=== PATIENT | male | born 1950 | race Hispanic/Latino ===

== ENCOUNTER 2021-11-29 18:42 | Inpatient (IN) | payer OTHER ==
--- OUTSIDE RECORDS SUMMARY | 2021-11-29 18:45 | XMS REPORT | Continuity of Care Document ---
:1950 Author Organization [facility] t Address [address] [place] [address] Care Team Providers Name Role Phone Dakota Sams MD Primary Care Physician ANEUDY SAMS Attending Clinician Unavailable Aneudy Sams MD Attending Clinician Bhumika RN, T Attending Clinician Unavailable Lucina LI Attending Clinician Unavailable Only, Db Test Attending Clinician Unavailable Shaylee Colin MD Attending Clinician Shaylee COLIN III Attending Clinician Unavailable Payers Payer Name Policy Type Policy Number Effective Date Expiration Date S ource Problems Condition Condition Condition Status Onset Resolution Last Treating Co mments Source Name Details Category Date Date Treatment Clinician Date BPH BPH Disease Active Univers (benign (benign 4-20 [place] hypert[place] dical y) y) Branch GERD GERD Disease Active Univers (gastroeso (gastroeso 2-29 it y of phageal phageal 00:00: [place] reflux reflux 00 Medical disease) disease) Branch Erectile Erectile Disease Active Unive rs dysfunctio dysfunctio 2-29 it y of n n 00:00: [address] Allergies, Adverse Reactions, Alerts Allergy Allergy Status Severity Reaction(s) Onset Inactive Treating Comm ents Source Name Type Date Date Clinician NO KNOWN Drug Active Univers ALLERGIE Class ity of S [facility] Social History Social Habit Start Date Stop Date Quantity Comments Source Exposure to Not sure University SARS-CoV-2 (event) [facility] Alcohol intake 2019-04-11 2019-04-11 Current University of 00:00:00 00:00:00 non-drinker of [facility] alcohol Branch (finding) Tobacco use and 2016-01-17 2016-01-17 Never used Universit y of exposure 00:00:00 00:00:00 [facility] Cigarettes smoked 2016-01-17 2016-01-17 Univers ity of current (pack per 00:00:00 00:00:00 [facility] ) - Reported Branch Cigarette 2016-01-17 2016-01-17 University of pack-years 00:00:00 00:00:00 [facility] History of tobacco 1981-01-16 Cigarette Smoker University of use 00:00:00 [facility] Sex Ass[birth year] At [birth year] Universit y of 00:00:00 00:00:00 [facility] Smoking Status Start Date Stop Date Source Former smoker 2016-01-17 00:00:00 2016-01-17 00:00:00 Universi ty of [facility] Medications Ordered Filled Start Stop Current Ordering Indication Dosage Frequency Signature Comments Components Source Medication Medication Date Date Medication? Clinician (SIG) Name Name pantoprazol 2020-11 Yes [id number] 40mg Take 1 Univers e 40 mg EC 2-13 tablet by ity of tablet 00:00: mouth [place] 00 daily. Medical Branch pantoprazol 2020-11 Yes [id number] 40mg Take 1 Univers e 40 mg EC 2-13 tablet by ity of tablet 00:00: mouth [place] 00 daily. Medical Branch pantoprazol 2020-11 Yes [id number] 40mg Take 1 Univers e 40 mg EC 2-13 tablet by ity of tablet 00:00: mouth [place] 00 daily. Medical Branch pantoprazol 2020-11 Yes [id number] 40mg Take 1 Univers e 40 mg EC 2-13 tablet by ity of tablet 00:00: mouth [place] 00 daily. Medical Branch pantoprazol 2020-11 Yes [id number] 40mg Take 1 Univers e 40 mg EC 2-13 tablet by ity of tablet 00:00: mouth [place] 00 daily. Medical Branch esomeprazol 2020-11 Yes [id number] 40mg Take 1 Univers e 40 mg 2-06 capsule by ity of capsule 00:00: mouth [place] 00 daily with Medical breakfast. Branch esomeprazol 2020-11 Yes [id number] 40mg Take 1 Univers e 40 mg 2-06 capsule by ity of capsule 00:00: mouth [place] 00 daily with Medical breakfast. Branch esomeprazol 2020-11 Yes [id number] 40mg Take 1 Univers e 40 mg 2-06 capsule by ity of capsule 00:00: mouth [place] 00 daily with Medical breakfast. Branch esomeprazol 2020-11 Yes [id number] 40mg Take 1 Univers e 40 mg 2-06 capsule by ity of capsule 00:00: mouth [place] 00 daily with Medical breakfast. Branch esomeprazol 2020-11 Yes [id number] 40mg Take 1 Univers e 40 mg 2-06 capsule by ity of capsule 00:00: mouth [place] 00 daily with Medical breakfast. Branch sildenafiL 2020-11 Yes [id number] 100mg Take 1 Univers (VIAGRA) 1-30 tablet by ity of 100 mg 00:00: mouth as [place] tablet 00 needed Medical (take one Branch hour prior to sexual activity). clobetasoL 2020-11 Yes [id number] Apply to Univers 0.05 % 1-30 affected ity of ointment 00:00: area[place] 2 [place] (two) Medical times Branch daily. sildenafiL 2020-11 Yes [id number] 100mg Take 1 Univers (VIAGRA) 1-30 tablet by ity of 100 mg 00:00: mouth as [place] tablet 00 needed Medical (take one Branch hour prior to sexual activity). clobetasoL 2020-11 Yes [id number] Apply to Univers 0.05 % 1-30 affected ity of ointment 00:00: area[place] 2 [place] (two) Medical times Branch daily. sildenafiL 2020-11 Yes [id number] 100mg Take 1 Univers (VIAGRA) 1-30 tablet by ity of 100 mg 00:00: mouth as [place] tablet 00 needed Medical (take one Branch hour prior to sexual activity). clobetasoL 2020-11 Yes [id number] Apply to Univers 0.05 % 1-30 affected ity of ointment 00:00: area[place] 2 [place] (two) Medical times Branch daily. sildenafiL 2020-11 Yes [id number] 100mg Take 1 Univers (VIAGRA) 1-30 tablet by ity of 100 mg 00:00: mouth as [place] tablet 00 needed Medical (take one Branch hour prior to sexual activity). clobetasoL 2020-11 Yes [id number] Apply to Univers 0.05 % 1-30 affected ity of ointment 00:00: area[place] 2 [place] (two) Medical times Branch daily. sildenafiL 2020-11 Yes [id number] 100mg Take 1 Univers (VIAGRA) 1-30 tablet by ity of 100 mg 00:00: mouth as [place] tablet 00 needed Medical (take one Branch hour prior to sexual activity). clobetasoL 2020-11 Yes [id number] Apply to Univers 0.05 % 1-30 affected ity of ointment 00:00: area[place] 2 [place] (two) Medical times Branch daily. esomeprazol 2020-11- No [id number] 40mg Take 1 Univers e 40 mg 1-30 12-06 capsule by ity o f capsule 00:00: 00:00 mouth [place] 00 :00 daily with Medical breakfast. Branch Procedures This patient has no known procedures. Encounters Start End Encounter Admission Attending Care Care Encounter Source Date/Time Date/Time Type Type Clinicians Facility Department ID 2021-12-06 2021-12-06 Outpatient R [facility]D [facility] [id number] Univers 10:30:00 10:30:00 DAKOTA [id number] ity of [facility] 2021-11-28 2021-11-[address] [facility] [place] [place] [id number] Univers 00:00:00 00:00:00 [facility] [id number] it y of [facility] [id number] Basim as GOVIND?BLEA [id number] Fl tha [address] MEDICAL OFFICE BUILDING 2021-11-27 2021-11-27 Nurse JOHANNY Bai [id number] Univers 00:00:00 00:00:00 Triage Vee PETERS [id number] it y of [facility] [id number] Basim as [id number] [address] 2021-11-25 2021-11-25 Telephone JOHANNY Verdugo [id number] Univers 00:00:00 00:00:00 Lulú PETERS [id number] it y of [facility] [id number] Basim as [id number] [address] 2021-11-23 2021-11-23 Laboratory Only, Ang Db Test [facility] [[email or web address]] [id number] Univers 12:00:00 12:15:00 Only Dakota Colin [facility] [id number] ity of [place] [id number] Basim as GOVIND?BLEA [id number] Fl tha [address] MEDICAL OFFICE BUILDING 2021-11-23 2021-11-23 Outpatient R [facility] [id number] Univers 12:00:00 12:00:[id number] [facility] 2021-11-23 2021-11-23 Outpatient R [facility] [id number] Univers 12:00:00 12:00:[address] [facility] 2021-10-21 2021-10-21 [facility] [id number] Univers 00:00:00 00:00:00 Dakota [facility] [id number] it y of frederick [place] [id number] Basim as GOVIND?BLEA [phone] Fl dicmiki [facility] [address] MEDICAL OFFICE BUILDING Results This patient has no known results.
--- NOTE | 2021-11-29 19:15 | RAD REPORT ---
EXAM DESCRIPTION: RAD - Chest Single View - 11/29/2021 7:03 pm CLINICAL HISTORY: CHEST PAIN COMPARISON: None TECHNIQUE: AP portable chest image was obtained 11/29/2021 7:03 pm . FINDINGS: Lung volumes are low. Interstitial and alveolar opacities are present worse in each lung b ase. History indicated only chest pain. Lung parenchymal pattern is suspicious for COVID-19 pneumonia and needs correlation with history and testing. Non COVID viral pneumonia or influenza are possibili ties. Trachea is midline. Heart and vasculature are prominent, mostly due to shallow inspiration. No measur able pleural effusion and no pneumothorax. No acute bony abnormality seen. No acute aortic findings s uspected. IMPRESSION: Bilateral interstitial and alveolar opacities are present suspicious for COVID-19 pneumo brittnee. This needs correlation with history and testing. Non COVID-19 viral pneumonia etiologies are possible as well. Prominent heart and vasculature mostly due shallow inspiration. A mild failure or volume overload cou ld be masked.
[2021-11-29 19:16] LABS: Absolute Lymphocytes (CBC) 0.6 K/uL (0.7-4.9); Hematocrit 47.3 % (39.6-49.0); Lymphocytes % 6.9 % (15.3-44.8); MPV 7.8 fL (7.6-11.3); RBC Red Blood Cell Count 4.91 M/uL (4.33-5.43)
[2021-11-29 19:25] LABS: Protime INR 1.19
[2021-11-29] MEDS ORDERED: dexAMETHasone 10 MG/ML VIAL ONE (19:39)
[2021-11-29 20:13] LABS: SARS-COV-2 RT PCR POSITIVE (NEGATIVE)
[2021-11-29] MEDS ORDERED: NA CHLORIDE 0.9% 1,000 ML ONE (20:17)
--- NOTE | 2021-11-29 20:21 | EDPHYS ---
Physician Documentation [facility] Name: Rosalina Marte Age: 71 yrs Sex: Male : 1950 Arrival Date: 11/29/2021 Time: 18:43 Bed 6 Private MD: ED Physician Martell Josue HPI: 11/29 19:00 This 71 yrs old Male presents to ER via EMS with complaints of Breathing cp Difficulty. 19:00 The patient has shortness of breath at rest. Onset: The symptoms/episode began/occurred cp gradually. Duration: The symptoms are continuous, and are steadily getting worse. The patient's shortness of breath is aggravated by exertion. Associated signs and symptoms: Pertinent positives: chest pain, Pertinent negatives: diaphoresis, fever, vomiting. Severity of symptoms: in the emergency department the symptoms are unchanged. 19:00 Patient reports testing positive for COVID-19 11-23-2021. Patient reports he is not cp vaccinated against COVID-19. Historical: - Allergies: 18:48 No Known Allergies; jd3 - Home Meds: 18:48 None [Active]; jd3 - PMHx: 18:48 None; jd3 - PSHx: 18:48 None; jd3 - Immunization history:: Adult Immunizations up to date, Client reports having NOT received the Covid vaccine. Flu vaccine is not up to date. - Social history:: Smoking status: Patient denies any tobacco usage or history of. ROS: 19:05 Constitutional: Negative for fever, poor PO intake. cp 19:05 Eyes: Negative for injury, pain, redness, and discharge. cp 19:05 ENT: Negative for drainage from ear(s), ear pain, difficulty swallowing, difficulty handling secretions. 19:05 Cardiovascular: Positive for chest pain, Negative for edema. 19:05 Respiratory: Positive for cough, shortness of breath, at rest. 19:05 Abdomen/GI: Negative for abdominal pain, vomiting, diarrhea, constipation. 19:05 : Positive for decreased urine output, Negative for urinary symptoms, difficulty urinating. 19:05 Neuro: Negative for altered mental status, syncope. 19:05 All other systems are negative. Exam: 19:08 Constitutional: The patient appears alert, awake, non-diaphoretic, non-toxic, well cp developed, well nourished, in obvious distress, moderately distressed. 19:08 Head/Face: Normocephalic, atraumatic. cp 19:08 Eyes: Periorbital structures: appear normal, Pupils: equal, round, and reactive to light and accomodation, Extraocular movements: intact throughout, Conjunctiva: normal, no exudate, no injection, Sclera: no appreciated abnormality, Lids and lashes: appear normal, bilaterally. 19:08 ENT: External ear(s): are unremarkable, Ear canal(s): are normal, clear, TM's: dullness, bilaterally, Nose: is normal, Mouth: Lips: moist, Oral mucosa: pink and intact, moist, Posterior pharynx: Airway: no evidence of obstruction, patent. 19:08 Neck: ROM/movement: is normal, is supple, without pain, no range of motions limitations, no meningismus, no nuchal rigidity. 19:08 Chest/axilla: Inspection: normal. 19:08 Cardiovascular: Rate: tachycardic, Rhythm: regular, Edema: is not appreciated, JVD: is not appreciated. 19:08 Respiratory: moderate respiratory distress is noted, Respirations: labored breathing, that is moderate, shallow respirations, that is moderate, Breath sounds: bronchial sounds, that are mild, are heard diffusely, decreased breath sounds, that are moderate, throughout, wheezing: is not appreciated. 19:08 Abdomen/GI: Inspection: abdomen appears normal, Bowel sounds: active, all quadrants, Palpation: abdomen is soft and non-tender, in all quadrants. 19:08 Back: pain, is absent, ROM is normal. 19:08 Neuro: Orientation: to person, place \\T\\ time. Mentation: is normal, Motor: moves all fours, strength is normal, Sensation: is normal. 19:10 ECG was reviewed by the Attending Physician. cp Vital Signs: 18:48 BP 118 / 91; Pulse 120; Resp 23 S; Temp 99.0(O); Pulse Ox 93% on Non-rebreather mask; jd3 Weight 69.85 kg (R); Height 5 ft. 4 in. (162.56 cm) (R); Pain 0/10; 19:43 BP 110 / 82; Pulse 114; Resp 38 S; Pulse Ox 95% on 40% BiPAP; as6 21:12 BP 116 / 84; Pulse 114; Resp 33 S; Pulse Ox 94% on 40% BiPAP; as6 18:48 Body Mass Index 26.43 (69.85 kg, 162.56 cm) jd3 MDM: 19:00 Differential diagnosis: CHF exacerbation, Chronic Obstructive Pulmonary Disease cp pneumonia, Pneumothorax pulmonary edema, Pulmonary Embolism Sepsis Unstable Angina respiratory failure. 19:06 Patient medically screened. 20:20 Physician consultation: Parviz CARMONA was contacted at 20:20, regarding admission, to the telemetry unit. patient's condition. 21:35 Data reviewed: vital signs, nurses notes, lab test result(s), EKG, radiologic studies, cp plain films. 21:35 Test interpretation: by ED physician or midlevel provider: ECG, plain radiologic cp studies. 11/29 18:50 Order name: Basic Metabolic Panel 11/29 18:50 Order name: CBC with Diff 11/29 18:50 Order name: LFT's 11/29 18:50 Order name: Magnesium cp 11/29 18:50 Order name: NT PRO-BNP 11/29 18:50 Order name: PT-INR; Complete Time: 19:48 cp 11/29 18:50 Order name: Troponin HS; Complete Time: 21:30 cp 11/29 18:50 Order name: CRP; Complete Time: 21:30 cp 11/29 21:30 Interpretation: Abnormal: C-REACTIVE PROT 123.00. cp 11/29 18:50 Order name: Ferritin; Complete Time: 21:30 cp 11/29 21:30 Interpretation: Abnormal: ESTEBAN 1866.6. cp 11/29 18:50 Order name: Lactate; Complete Time: 20:04 cp 11/29 18:50 Order name: Procalcitonin; Complete Time: 20:04 cp 11/29 18:50 Order name: Blood Culture Adult (2) cp 11/29 18:50 Order name: COVID-19/FLU A+B (Document "Date of Onset" if Symptomatic); Complete Time: cp 20:18 11/29 18:51 Order name: Urine Microscopic Only; Complete Time: 14:11 cp 11/29 18:51 Order name: Basic Metabolic Panel; Complete Time: 21:30 EDMS 11/29 21:31 Interpretation: Normal except: NA 135; GFR 88; CA 8.1. cp 11/29 18:51 Order name: CBC with Automated Diff; Complete Time: 21:30 EDMS 11/29 18:51 Order name: Liver (Hepatic) Function; Complete Time: 21:30 EDMS 11/29 18:51 Order name: Magnesium; Complete Time: 21:30 EDMS 11/29 18:51 Order name: NT PRO-BNP; Complete Time: 21:30 EDMS 11/29 20:21 Order name: ABG cp 11/29 20:21 Order name: ABG Arterial Blood Gas; Complete Time: 21:30 EDMS 11/29 20:26 Order name: CBC Smear Scan; Complete Time: 21:30 EDMS 11/29 23:23 Order name: Lactate Sepsis 2 HR Follow-up; Complete Time: 14:11 EDMS 11/30 03:52 Order name: Urine Dipstick-Ancillary; Complete Time: 14:11 EDMS 11/30 04:09 Order name: Comprehensive Metabolic Panel; Complete Time: 14:11 EDMS 11/30 04:09 Order name: Phosphorus; Complete Time: 14:11 EDMS 11/30 04:09 Order name: Lipid Profile; Complete Time: 14:11 EDMS 11/30 04:09 Order name: C-Reactive Protein; Complete Time: 14:11 EDMS 11/30 04:09 Order name: T4 Free; Complete Time: 14:11 EDMS 11/30 04:09 Order name: Magnesium; Complete Time: 14:11 EDMS 11/29 18:50 Order name: XRAY Chest (1 view); Complete Time: 19:48 11/29 18:50 Order name: EKG; Complete Time: 18:52 11/29 18:50 Order name: Cardiac monitoring; Complete Time: 18:52 cp 11/29 18:50 Order name: EKG - Nurse/Tech; Complete Time: 19:09 cp 11/29 18:50 Order name: IV Saline Lock; Complete Time: 18:52 cp 11/29 18:50 Order name: Labs collected and sent; Complete Time: 18:52 cp 11/29 18:50 Order name: O2 Per Protocol; Complete Time: 18:52 cp 11/29 18:50 Order name: O2 Sat Monitoring; Complete Time: 18:52 cp 11/29 18:51 Order name: Urine Dipstick-Ancillary (obtain specimen); Complete Time: 03:53 cp 11/29 19:38 Order name: CT Chest For PE Angio cp 11/29 21:30 Order name: CONS Physician Consult EDMS 11/30 04:09 Order name: Thyroid Stimulating Hormone; Complete Time: 14:11 EDMS 11/30 04:09 Order name: Ferritin; Complete Time: 14:11 EDMS 11/30 04:23 Order name: CBC with Automated Diff; Complete Time: 14:11 EDMS 11/30 04:34 Order name: Procalcitonin; Complete Time: 14:11 EDMS 11/30 11:37 Order name: CT; Complete Time: 14:11 EDMS EC:10 Rate is 117 beats/min. Rhythm is regular. MN interval is normal. QRS interval is cp normal. QT interval is normal. Interpreted by me. Reviewed by me. Administered Medications: 19:42 Drug: Decadron - Dexamethasone 6 mg Route: IVP; Site: left antecubital; as6 20:19 Drug: NS 0.9% 1000 ml Route: IV; Rate: 1 bolus; Site: left antecubital; al4 11/30 03:53 Follow up: Response: No adverse reaction; IV Status: Completed infusion; IV Intake: as6 1000ml Disposition: 18:16 Co-signature as Attending Physician, Martell Josue MD I agree with the assessment and rn plan of care. Attestation: The patient's history, exam findings, diagnostics, and a summary of any interventions or procedures was reviewed in detail with Doni CARMONA. Disposition Summary: 11/29/21 20:20 Hospitalization Ordered Hospitalization Status: Inpatient Admission cp Condition: Stable cp Problem: new cp Symptoms: have improved cp Bed/Room Type: Standard cp Provider: Paul Dale(11/29/21 21:31) cp Location: Telemetry/MedSurg (Inpatient)(11/30/21 14:03) dw Room Assignment: 401(11/30/21 14:03) dw Diagnosis - Pneumonia due to SARS-associated coronavirus cp - Hypoxemia cp Forms: - Medication Reconciliation Form cp - SBAR form cp Signatures: Dispatcher [employer] Christine Denny RN RN dw Nieto, Roman, MD MD rn Roszak, Josh, PA PA jrDoni Velasquez PA PA cp Garcia, Cindy, RN RN cg Davies, Jonathon, RN RN jd3 Donny Oneil RN RN as6 Yony Gonzáles Corrections: (The following items were deleted from the chart) 11/29 21:31 20:20 Parviz Horta [facility] 21:54 20:20 Telemetry/MedSurg (Inpatient) cp :54 20:20 cp cg 11/30 14:03 11/29 21:54 [facility] ER [facility] cg dw 11/30 14:03 11/29 21:54 ERHOLD- cg dw
--- NOTE | 2021-11-29 20:21 | ER ---
Nurse's Notes [facility] Name: Rosalina Marte Age: 71 yrs Sex: Male : 1950 Arrival Date: 11/29/2021 Time: 18:43 Bed 6 Private MD: Diagnosis: Pneumonia due to SARS-associated coronavirus;Hypoxemia Presentation: 11/29 18:44 Chief complaint: EMS states: "Shortness of breath with COVID + since Nov 5. 74% O2 jd3 saturation on room air. 94% on nonrebreather.". Coronavirus screen: difficulty breathing, shortness of breath, Client presents with at least one sign or symptom that may indicate coronavirus-19. Standard/surgical mask placed on the client. Provider contacted for isolation considerations. Ebola Screen: Patient negative for fever greater than or equal to 101.5 degrees Fahrenheit, and additional compatible Ebola Virus Disease symptoms. Initial Sepsis Screen: Does the patient meet any 2 criteria? RR > 20 per min. HR > 90 bpm. Yes Does the patient have a suspected source of infection? No. Patient's initial sepsis screen is negative. Risk Assessment: Do you want to hurt yourself or someone else? Patient reports no desire to harm self or others. Onset of symptoms was November 23, 2021. 18:44 Method Of Arrival: EMS: [facility] jd3 18:44 Acuity: ROSALBA 3 jd3 Triage Assessment: 18:55 General: Appears uncomfortable, well groomed, well developed. Respiratory: Reports. [facility] 18:55 Respiratory: Onset: The symptoms/episode began/occurred gradually, the patient has 6 moderate shortness of breath. Historical: - Allergies: 18:48 No Known Allergies; jd3 - Home Meds: 18:48 None [Active]; jd3 - PMHx: 18:48 None; jd3 - PSHx: 18:48 None; jd3 - Immunization history:: Adult Immunizations up to date, Client reports having NOT received the Covid vaccine. Flu vaccine is not up to date. - Social history:: Smoking status: Patient denies any tobacco usage or history of. Screenin:09 Abuse screen: Denies threats or abuse. Nutritional screening: No deficits noted. [facility] Tuberculosis screening: No symptoms or risk factors identified. Fall Risk None identified. Assessment: 19:05 General: Appears distressed, uncomfortable, well groomed, well developed, well jh6 nourished, Behavior is cooperative, anxious. Pain: Complains of pain in head, chest, abdomen, pelvis, right arm, left arm, right leg and left leg Pain currently is 3 out of 10 on a pain scale. Quality of pain is described as aching. Cardiovascular: Rhythm is regular. Cardiovascular: No deficits noted. Reports chest pain, pain with coughing or deep breath. Respiratory: Airway is patent Respiratory effort is labored, Breath sounds with rhonchi bilaterally. 19:42 Respiratory: Airway is patent Respiratory effort is labored, Respiratory pattern is as6 regular, symmetrical, Patient placed on BiPAP: FiO2%: 40 Respiratory Rate: 16. 21:15 Reassessment: No changes from previously documented assessment. as6 Vital Signs: 18:48 BP 118 / 91; Pulse 120; Resp 23 S; Temp 99.0(O); Pulse Ox 93% on Non-rebreather mask; jd3 Weight 69.85 kg (R); Height 5 ft. 4 in. (162.56 cm) (R); Pain 0/10; 19:43 BP 110 / 82; Pulse 114; Resp 38 S; Pulse Ox 95% on 40% BiPAP; as6 21:12 BP 116 / 84; Pulse 114; Resp 33 S; Pulse Ox 94% on 40% BiPAP; as6 18:48 Body Mass Index 26.43 (69.85 kg, 162.56 cm) jd3 ED Course: 18:43 Patient arrived in ED. am2 18:44 Doni Molina PA is PHCP. cp 18:44 Martell Josue MD is Attending Physician. cp 18:48 Triage completed. jd3 18:49 Arm band placed on. jd3 18:55 COVID swab sent to lab. X-ray(s) taken. jh6 18:55 Assist ventilation. jh6 19:02 Donny Oneil, GUILLERMO is Primary Nurse. as6 19:03 XRAY Chest (1 view) In Process Unspecified. EDMS 19:09 Bed in low position. Call light in reach. Side rails up X 1. Adult w/ patient. jh6 19:10 Inserted saline lock: 20 gauge in left antecubital area, using aseptic technique. jh6 20:19 Parviz Horta PA is Hospitalizing Provider. cp 21:31 Paul Dale is Hospitalizing Provider. cp Administered Medications: 19:42 Drug: Decadron - Dexamethasone 6 mg Route: IVP; Site: left antecubital; as6 20:19 Drug: NS 0.9% 1000 ml Route: IV; Rate: 1 bolus; Site: left antecubital; al4 11/30 03:53 Follow up: Response: No adverse reaction; IV Status: Completed infusion; IV Intake: as6 1000ml Intake: 03:53 IV: 1000ml; Total: 1000ml. as6 Outcome: 11/29 20:20 Decision to Hospitalize by Provider. cp 11/30 14:41 Patient left the ED. ss Signatures: Dispatcher [employer] EDMS Emerita Person RN RN ss Doni Molina PA PA cp Daisy Perry Jonathon, RN RN jDonny Kaye RN RN as6 Denice Crabtree RN RN jh6 Yony Gonzáles al4
[2021-11-29 20:26] LABS: Blood Morphology Comment NOT SEEN (NOT SEEN); Platelet Estimate ADEQ; White Blood Cell Scan OK (OK)
[2021-11-29 21:19] LABS: Albumin 2.6 g/dL (3.4-5.0); Bilirubin Direct 0.2 mg/dL (0-0.2); Bilirubin Total 0.5 mg/dL (0.2-1.0); Ferritin 1866.6 ng/mL (26-388); Magnesium 2.2 mg/dL (1.8-2.4); Potassium 4.4 mmol/L (3.5-5.1); Protein, Total 7.1 g/dL (6.4-8.2); Troponin High Sensitivity 35.8 pg/mL (<58.9)
--- NOTE | 2021-11-29 21:54 | P.HP ---
Certification for Inpatient Patient admitted to: Inpatient With expected LOS: >2 Midnights Patient will require the following post-hospital care: None Practitioner: I am a practitioner with admitting privileges, knowledge of patient current condition, hospital course, and medical plan of care. 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 His symptoms started last Sunday with dry cough, pleuritic pain, SOB, BATES, vomiting and constipation. He has had poor appetite and poor fluid intake. His shortness of breath as continued to worsen over the past three days. He says the minute he was placed on oxygen, he felt immediate relief. He tested positive for COVID last Sunday. Lactate 3.2 Ferritin 1866 CRP 123 BNP 3754 procal 0.52 CXR IMPRESSION: Bilateral interstitial and alveolar opacities are present suspicious for COVID-19 pneumonia. This needs correlation with history and testing. Non COVID-19 viral pneumonia etiologies are possible as well. Prominent heart and vasculature mostly due shallow inspiration. A mild failure or volume overload could be masked. - Past Medical/Surgical History Diabetic: No Past Medical History: Patient denies medical history Past Surgical History: Patient denies surgical history - Family History Mother -: Heart disease - Social History Smoking Status: Never smoker Alcohol use: No CD- Drugs: No Caffeine use: Yes Place of Residence: Home Review of Systems General: Weakness, Malaise Eyes: Unremarkable ENT: Unremarkable Respiratory: Cough, Shortness of Breath, SOB with Excertion, Pleuritic Pain, As per HPI Cardiovascular: Unremarkable Gastrointestinal: Nausea, Vomiting, Constipation Genitourinary: Unremarkable Musculoskeletal: Unremarkable Integumentary: Unremarkable Neurological: Unremarkable Lymphatics: Unremarkable Physical Examination - Physical Exam General: Alert (on BIPAP, sats 97%) HEENT: Atraumatic, PERRLA, Mucous membr. moist/pink, EOMI, Sclerae nonicteric Neck: Supple, 2+ carotid pulse no bruit, No LAD, Without JVD or thyroid abnormality Respiratory: Normal air movement, Rhonchi/gurgles Cardiovascular: No edema, Regular rate/rhythm, Normal S1 S2 Gastrointestinal: Normal bowel sounds, No tenderness Musculoskeletal: No tenderness Integumentary: No rashes Neurological: Normal speech, Normal strength at 5/5 x4 extr, Normal tone, Normal affect Lymphatics: No axilla or inguinal lymphadenopathy - Studies Laboratory Data (last 24 hrs) 11/29/21 18:54: PT 13.7 H, INR 1.19 11/29/21 18:54: WBC 8.00, Hgb 15.8, Hct 47.3, Plt Count 208 11/29/21 18:54: Sodium 135 L, Potassium 4.4, BUN 12, Creatinine 0.86, Glucose 104, Magnesium 2.2, Total Bilirubin 0.5, AST 34, ALT 17, Alkaline Phosphatase 66 Assessment and Plan - Problems (Diagnosis) (1) Pneumonia due to COVID-19 virus Current Visit: Yes Status: Acute - Plan pulm consulted, RT consulted wean BIPAP as tolerated continue covid supplements, IV steroids antitussives, antipyretics PRN daily CRP, ferritin, procalcitonin CTPE pending, ECHO pending DVT ppx Discharge Plan: Home Plan to discharge in: Greater than 2 days - Advance Directives Does patient have a Living Will: No Does patient have a Durable POA for Healthcare: No - Code Status/Comfort Care Code Status Assessed: Yes (full code ) Critical Care: No Time Spent Managing Pts Care (In Minutes): 70
[2021-11-29] MEDS ORDERED: ACETAMINOPHEN 500 MG TAB PO PRN (21:57)
[2021-11-29] MEDS ORDERED: MORPHINE 2 MG/ML SYR IV PRN (21:57)
[2021-11-29] MEDS ORDERED: ONDANSETRON 4 MG/2 ML VIAL IV PRN (21:57)
[2021-11-29 22:22] VITALS: BMI 26.4
[2021-11-29] MEDS: MELATONIN 5 MG TABLET PO PRN (22:36)
[2021-11-30 03:52] LABS: Absolute Lymphocytes (CBC) 0.3 K/uL (0.7-4.9); Hematocrit 45.8 % (39.6-49.0); Lymphocytes % 6.4 % (15.3-44.8); MPV 8.2 fL (7.6-11.3); RBC Red Blood Cell Count 4.79 M/uL (4.33-5.43)
[2021-11-30 03:52] LABS: Urine Blood Trace-intact (Negative); Urine Glucose Negative (Negative); Urine Protein Trace (Negative); Urine Specific Gravity 1.015 (1.005-1.030); Urine pH 5.5 (5.0-7.0)
[2021-11-30 04:08] LABS: ALT/SGPT 18 U/L (12-78); AST/SGOT 36 U/L (15-37); Albumin 2.4 g/dL (3.4-5.0); Alkaline Phosphatase 61 U/L (45-117); BUN Blood Urea Nitrogen 11 mg/dL (7-18); Bicarbonate 21 mmol/L (21-32); Bilirubin Total 0.4 mg/dL (0.2-1.0); Ferritin 1665.5 ng/mL (26-388); Glucose Level 118 mg/dL (74-106); HDL Cholesterol 45 mg/dL (40-60); LDL Cholesterol, Calculated 71 (<130); Magnesium 2.3 mg/dL (1.8-2.4); Phosphorus 3.4 mg/dL (2.5-4.9); Potassium 4.8 mmol/L (3.5-5.1); Protein, Total 6.6 g/dL (6.4-8.2); Sodium Level 132 mmol/L (136-145); Thyroid Stimulating Hormone 0.205 uIU/mL (0.360-3.740)
[2021-11-30 05:28] LABS: Urine Bacteria <20 /HPF (NONE SEEN); Urine RBC <5 /HPF (NONE SEEN)
--- NOTE | 2021-11-30 07:47 | EKG ---
Test Date: 2021-11-29 Test Time: 19:04:51 [employer]garten Teacher: BATSHEVA MEASUREMENT RESULTS: Intervals: Rate: 117 DE: 162 QRSD: 92 QT: 332 QTc: 463 [place]: P: 43 DE: 162 QRS: 50 T: 102 INTERPRETIVE STATEMENTS: Sinus tachycardia with frequent premature ventricular complexes Possible Anterior infarct, age undetermined Marked ST abnormality, possible lateral subendocardial injury Abnormal ECG No previous ECG available for comparison Electronically Signed On 11-30-21 07:45:39 RN IMAGING by Galindo Morales
[2021-11-30] MEDS ORDERED: ASPIRIN 81 MG CHEWABLE TABLET ONE (08:01)
[2021-11-30] MEDS ORDERED: ASCORBIC ACID 500 MG TABLET ONE ×2 (08:01→13:59)
[2021-11-30] MEDS ORDERED: VITAMIN D 1000 UNIT TAB ONE (08:02)
[2021-11-30] MEDS ORDERED: THIAMINE HCL 100 MG TABLET ONE (08:02)
[2021-11-30] MEDS ORDERED: APIXABAN 5 MG TABLET ONE (08:02)
[2021-11-30] MEDS ORDERED: ZINC SULFATE 220 MG CAP ONE ×2 (08:02→08:47)
[2021-11-30] MEDS ORDERED: METHYLPREDNISOLONE 40 MG INJ ONE (08:02)
[2021-11-30] MEDS ORDERED: FAMOTIDINE 20 MG TAB ONE (08:04)
[2021-11-30] MEDS: ASCORBIC ACID 500 MG TABLET PO SCH ×4 (09:00→20:31)
[2021-11-30] MEDS: FAMOTIDINE 20 MG TAB PO SCH ×2 (09:00→20:31)
[2021-11-30] MEDS: VITAMIN D 1000 UNIT TAB PO SCH (09:00)
[2021-11-30] MEDS: APIXABAN 5 MG TABLET PO SCH ×2 (09:00→20:31)
[2021-11-30] MEDS: THIAMINE HCL 100 MG TABLET PO SCH (09:00)
[2021-11-30] MEDS: METHYLPREDNISOLONE 125 MG INJ IV SCH ×2 (09:00→20:32)
[2021-11-30] MEDS: ASPIRIN EC 81 MG TAB PO SCH (09:00)
[2021-11-30] MEDS: ZINC SULFATE 220 MG CAP PO SCH (09:00)
--- NOTE | 2021-11-30 11:37 | RAD REPORT ---
EXAM DESCRIPTION: CT - Chest For Pe Angio - 11/30/2021 6:00 am CLINICAL HISTORY: Chest pain;SOB. COMPARISON: None. TECHNIQUE: CTA of the chest was performed following intravenous administration of iodinated contrast . Axial soft tissue and lung window, and coronal and sagittal soft tissue window reconstructions were created and sent to PACS. 3D postprocessing was performed on an independent workstation, with images sent to PACS for subsequen t review. This exam was performed according to our departmental dose-optimization program, which includes autom ated exposure control, adjustment of the mA and/or kV according to patient size and/or use of iterati ve reconstruction technique. FINDINGS: Vascular: The pulmonary arteries are well-opacified to the segmental level. No CT evidence of acute pulmonary thromboembolism. No evidence of aortic aneurysm. Lungs and pleura: Moderate regions of groundglass opacification in both lungs. Trace bilateral pleura l effusions. No pneumothorax. Mediastinum and neck: Mild mediastinal lymphadenopathy. Unremarkable appearance of the thyroid gland. Cardiac: Left ventricular enlargement. No pericardial effusion. Abdomen: Hepatic hypodensities, likely cysts, measuring up to 6 cm in size. Musculoskeletal: No concerning osseous abnormality. IMPRESSION: 1. No CTA evidence of acute pulmonary thromboembolism. 2. Moderate regions of groundglass opacification in both lungs. Trace bilateral pleural effusions. Correlate for infectious/inflammatory process versus pulmonary edema. 3. Mild mediastinal lymphadenopathy, likely reactive. 4. Left ventricular enlargement. Electronically signed by: Shayy Jerome MD 11/29/2021 11:19 PM SERVICE TECHNICIAN COPIER Due to temporary technical issues with the PACS/Fluency reporting system, reports are being signed by the in house radiologist without review as a courtesy to ensure prompt reporting. The interpreting r adiologist is fully responsible for the content of the report.
--- NOTE | 2021-11-30 12:46 | P.CNS ---
Date of Consult: 11/30/21 Reason for Consult: Coronavirus pneumonia Primary Care Provider: Ranjan Chief Complaint: covid pneumonia History of Present Illness: Patient is 71 years of age admitted respiratory failure secondary to coronavirus got diffuse disease on his x-ray he has been having extensive pulmonary complain currently on BiPAP Allergies No Known Allergies Allergy (Unverified 11/29/21 22:16) - Past Medical/Surgical History Diabetic: No - Family History Mother Medical History: Heart disease - Social History Alcohol use: No CD- Drugs: No Caffeine use: Yes Place of Residence: Home Review of Systems is unable to be obtained Physical Examination Temp Pulse Resp BP Pulse Ox 96.0 F L 80 28 H 100/71 97 11/30/21 08:00 11/30/21 08:00 11/30/21 08:00 11/30/21 08:00 11/30/21 08:00 General: Unresponsive Respiratory: Crackles/rales Laboratory Data (last 24 hrs) 11/29/21 18:54: PT 13.7 H, INR 1.19 11/29/21 18:54: WBC 8.00, Hgb 15.8, Hct 47.3, Plt Count 208 11/29/21 18:54: Sodium 135 L, Potassium 4.4, BUN 12, Creatinine 0.86, Glucose 104, Magnesium 2.2, Total Bilirubin 0.5, AST 34, ALT 17, Alkaline Phosphatase 66 - Problems (1) Pneumonia due to COVID-19 virus Current Visit: Yes Status: Acute Plan: Patient is 71 years of age admitted with respiratory failure from coronavirus extensive disease on the CT scan labs reviewed CT scan chest x-ray reviewed patient is a candidate for Barcitinib CRP ferritin all elevated currently on 60% FiO2 no change in medication
--- NOTE | 2021-11-30 13:45 | ECHO ---
HEIGHT: 5 ft 4 in WEIGHT: 154 lb 0 oz DATE OF STUDY: 11/30/[address]: Parviz Horta 2-DIMENSIONAL: YES M.MODE: YES DOPPLER: YES COLOR FLOW: YES TDS: NO PORTABLE: YES DEFINITY: NO BUBBLE STUDY: NO DIAGNOSIS: VOLUME OVERLOAD CARDIAC HISTORY: CATHERIZATION: SURGERY: PROSTHETIC VALVE: PACEMAKER: MEASUREMENTS (cm) DIASTOLIC (NORMALS) SYSTOLIC (NORMALS) IVSd 1.2 (0.6-1.2) LA Diam (1.9-4.0) LVEF 19% LVIDd 4.7 (3.5-5.7) LVIDs 4.3 (2.0-3.5) %FS 9% LVPWd 1.3 (0.6-1.2) Ao Diam 4.1 (2.0-3.7) 2 DIMENSIONAL ASSESSMENT: RIGHT ATRIUM: NORMAL LEFT ATRIUM: DILATED RIGHT VENTRICLE: NORMAL LEFT VENTRICLE: LEFT VENTRICULAR HYPERTROPHY TRICUSPID VALVE: NORMAL MITRAL VALVE: NORMAL PULMONIC VALVE: NORMAL AORTIC VALVE: NORMAL PERICARDIAL EFFUSION: NONE AORTIC ROOT: NORMAL LEFT VENTRICULAR WALL MOTION: SEVERE GLOBAL HYPOKINESIS. DOPPLER/COLOR FLOW: MILD TRICUSPID REGURGITATION. COMMENTS: SEVERE GLOBAL HYPOKINESIS. LEFT VENTRICULAR EJECTION FRACTION 19%. MILD TRICUSPID REGURGITATION. NORMAL RIGHT VENTRICULAR SYSTOLIC PRESSURE. LEFT ATRIAL ENLARGEMENT. LEFT VENTRICULAR HYPERTROPHY. TECHNOLOGIST: Scot QUINTANILLA
[2021-11-30] MEDS: BARICITINIB 2 MG TABLET PO SCH (14:00)
--- NOTE | 2021-11-30 17:02 | P.PN ---
Subjective Date of Service: 11/30/21 Primary Care Provider: Ranjan Chief Complaint: covid pneumonia Patient maintained on BiPAP. He denies shortness of breath. Good SaO2 on the BiPAP. Physical Examination - Vital Signs Temperature: 97.1 F Blood Pressure: 108/79 Pulse: 81 Respirations: 29 Pulse Ox (%): 96 - Physical Exam General: Alert, In no apparent distress HEENT: Other (BiPAP) Neck: JVD not distended Respiratory: Crackles/rales (Bilateral) Cardiovascular: No edema, Regular rate/rhythm, Normal S1 S2 Gastrointestinal: Soft and benign, Non-distended Musculoskeletal: No swelling, No tenderness Integumentary: No rashes, No cyanosis Neurological: Normal speech, Normal strength at 5/5 x4 extr - Studies Laboratory Data (last 24 hrs) 11/29/21 18:54: PT 13.7 H, INR 1.19 11/29/21 18:54: WBC 8.00, Hgb 15.8, Hct 47.3, Plt Count 208 11/29/21 18:54: Sodium 135 L, Potassium 4.4, BUN 12, Creatinine 0.86, Glucose 104, Magnesium 2.2, Total Bilirubin 0.5, AST 34, ALT 17, Alkaline Phosphatase 66 Assessment And Plan - Current Problems (Diagnosis) (1) Acute respiratory failure with hypoxia Current Visit: Yes Status: Acute (2) Pneumonia due to COVID-19 virus Current Visit: Yes Status: Acute - Plan Continue IV steroid. Vitamin C and zinc supplementation. Pulmonary input appreciated. Patient was started on baricitinib. Wean oxygen as tolerated. Monitor inflammatory markers. Eliquis for DVT prophylaxis. Monitor CBC and blood chemistry.
[2021-11-30] MEDS: MELATONIN 5 MG TABLET PO PRN (20:31)
[2021-12-01 05:12] LABS: Absolute Lymphocytes (CBC) 0.5 K/uL (0.7-4.9); Hematocrit 45.5 % (39.6-49.0); Lymphocytes % 8.3 % (15.3-44.8); MPV 8.4 fL (7.6-11.3); RBC Red Blood Cell Count 4.78 M/uL (4.33-5.43)
[2021-12-01 05:29] LABS: ALT/SGPT 28 U/L (12-78); AST/SGOT 38 U/L (15-37); Albumin 2.3 g/dL (3.4-5.0); Alkaline Phosphatase 60 U/L (45-117); BUN Blood Urea Nitrogen 19 mg/dL (7-18); Bicarbonate 24 mmol/L (21-32); Bilirubin Total 0.4 mg/dL (0.2-1.0); Ferritin 1593.2 ng/mL (26-388); Glucose Level 138 mg/dL (74-106); Potassium 4.4 mmol/L (3.5-5.1); Protein, Total 6.4 g/dL (6.4-8.2); Sodium Level 134 mmol/L (136-145)
--- NOTE | 2021-12-01 08:39 | P.PN ---
Subjective Date of Service: 12/01/21 Primary Care Provider: Ranjan Chief Complaint: covid pneumonia Subjective: Improving (Patient is doing better wants to drink fluid is currently on BiPAP) Review of Systems General: Weakness Respiratory: Shortness of Breath Physical Examination - Vital Signs Temperature: 96.5 F Blood Pressure: 102/68 Pulse: 75 Respirations: 30 Pulse Ox (%): 93 - Physical Exam General: Alert, Oriented x3, Cooperative Assessment & Plan - Problems (Diagnosis) (1) Pneumonia due to COVID-19 virus Current Visit: Yes Status: Acute Plan: Patient doing better subjectively looking better which changed to high flow oxygen chemistries labs medication list reviewed continue with steroids Barcitinib
[2021-12-01] MEDS: ASPIRIN EC 81 MG TAB PO SCH (09:44)
[2021-12-01] MEDS: BARICITINIB 2 MG TABLET PO SCH (09:44)
[2021-12-01] MEDS: ZINC SULFATE 220 MG CAP PO SCH (09:44)
[2021-12-01] MEDS: THIAMINE HCL 100 MG TABLET PO SCH (09:44)
[2021-12-01] MEDS: METHYLPREDNISOLONE 125 MG INJ IV SCH ×2 (09:44→20:01)
[2021-12-01] MEDS: FAMOTIDINE 20 MG TAB PO SCH ×2 (09:45→20:01)
[2021-12-01] MEDS: ASCORBIC ACID 500 MG TABLET PO SCH ×4 (09:45→20:01)
[2021-12-01] MEDS: VITAMIN D 1000 UNIT TAB PO SCH (09:45)
[2021-12-01] MEDS: APIXABAN 5 MG TABLET PO SCH ×2 (09:45→20:01)
--- NOTE | 2021-12-01 18:43 | P.PN ---
Subjective Date of Service: 12/01/21 Primary Care Provider: Ranjan Chief Complaint: covid pneumonia Patient is currently tolerating 10 L oxygen by nasal cannula. Physical Examination - Vital Signs Temperature: 97.7 F Blood Pressure: 97/68 Pulse: 88 Respirations: 32 Pulse Ox (%): 89 - Physical Exam General: Alert, In no apparent distress HEENT: Mucous membr. moist/pink Neck: JVD not distended Respiratory: Crackles/rales (Bilateral), Other (Nonlabored breathing) Cardiovascular: No edema, Regular rate/rhythm, Normal S1 S2 Gastrointestinal: Soft and benign, Non-distended Musculoskeletal: No swelling, No tenderness Integumentary: No rashes, No erythema, No cyanosis Neurological: Normal strength at 5/5 x4 extr Assessment And Plan - Current Problems (Diagnosis) (1) Acute respiratory failure with hypoxia Current Visit: Yes Status: Acute (2) Pneumonia due to COVID-19 virus Current Visit: Yes Status: Acute - Plan Continue IV steroid. Vitamin C and zinc supplementation. Pulmonary is following Continue baricitinib. Wean oxygen as tolerated. Monitor inflammatory markers. Eliquis for DVT prophylaxis. Monitor CBC and blood chemistry.
[2021-12-01] MEDS: MELATONIN 5 MG TABLET PO PRN (20:01)
[2021-12-02 04:37] LABS: Absolute Lymphocytes (CBC) 0.6 K/uL (0.7-4.9); Hematocrit 44.5 % (39.6-49.0); Lymphocytes % 6.8 % (15.3-44.8); MPV 8.1 fL (7.6-11.3); RBC Red Blood Cell Count 4.66 M/uL (4.33-5.43)
[2021-12-02 07:02] LABS: ALT/SGPT 32 U/L (12-78); AST/SGOT 35 U/L (15-37); Albumin 2.4 g/dL (3.4-5.0); Alkaline Phosphatase 62 U/L (45-117); BUN Blood Urea Nitrogen 30 mg/dL (7-18); Bicarbonate 25 mmol/L (21-32); Bilirubin Total 0.4 mg/dL (0.2-1.0); Glucose Level 135 mg/dL (74-106); Potassium 4.5 mmol/L (3.5-5.1); Protein, Total 6.2 g/dL (6.4-8.2); Sodium Level 137 mmol/L (136-145)
[2021-12-02] MEDS: BARICITINIB 2 MG TABLET PO SCH (07:58)
[2021-12-02] MEDS: THIAMINE HCL 100 MG TABLET PO SCH (07:58)
[2021-12-02] MEDS: VITAMIN D 1000 UNIT TAB PO SCH (07:58)
[2021-12-02] MEDS: METHYLPREDNISOLONE 125 MG INJ IV SCH ×2 (07:59→21:53)
[2021-12-02] MEDS: ASCORBIC ACID 500 MG TABLET PO SCH ×4 (07:59→21:52)
[2021-12-02] MEDS: ZINC SULFATE 220 MG CAP PO SCH (07:59)
[2021-12-02] MEDS: APIXABAN 5 MG TABLET PO SCH (07:59)
[2021-12-02] MEDS: ASPIRIN EC 81 MG TAB PO SCH (07:59)
[2021-12-02] MEDS: FAMOTIDINE 20 MG TAB PO SCH ×2 (07:59→21:51)
--- NOTE | 2021-12-02 11:17 | P.PN ---
Subjective Date of Service: 12/02/21 Primary Care Provider: Ranjan Chief Complaint: covid pneumonia Subjective: Improving (Patient is subjectively feeling better currently on 10 L of nasal cannula oxygen BiPAP) Review of Systems (Patient is subjectively feeling better currently on 10 L of nasal cannula oxygen BiPAP very weak) General: Weakness Respiratory: Shortness of Breath Physical Examination - Vital Signs Temperature: 97.6 F Blood Pressure: 96/68 Pulse: 71 Respirations: 18 Pulse Ox (%): 91 - Physical Exam General: Alert, Oriented x3, Mild distress Respiratory: Diminished Assessment & Plan - Problems (Diagnosis) (1) Pneumonia due to COVID-19 virus Current Visit: Yes Status: Acute Plan: Respiratory failure patient's condition is improving continue to wean down on his oxygen titrate sat to 90% currently on 10 L of high flow oxygen labs medications reviewed reduce to low-dose anticoagulation
[2021-12-02 13:48] LABS: Ferritin 1361.3 ng/mL (26-388)
--- NOTE | 2021-12-02 14:49 | P.PN ---
Subjective Date of Service: 12/02/21 Primary Care Provider: Ranjan Chief Complaint: covid pneumonia Patient is currently tolerating 10 L oxygen by nasal cannula. He was on BiPAP briefly last night. Physical Examination - Vital Signs Temperature: 98.0 F Blood Pressure: 104/67 Pulse: 82 Respirations: 18 Pulse Ox (%): 90 Assessment And Plan - Current Problems (Diagnosis) (1) Acute respiratory failure with hypoxia Current Visit: Yes Status: Acute (2) Pneumonia due to COVID-19 virus Current Visit: Yes Status: Acute - Plan Continue IV steroid. Vitamin C and zinc supplementation. Pulmonary is following Continue baricitinib. Wean oxygen as tolerated. Monitor inflammatory markers. Eliquis for DVT prophylaxis. Patient may be a good candidate for LTAC.
[2021-12-02] MEDS: APIXABAN 2.5 MG TABLET PO SCH (21:53)
[2021-12-03 04:37] LABS: Absolute Lymphocytes (CBC) 0.4 K/uL (0.7-4.9); Hematocrit 43.8 % (39.6-49.0); Lymphocytes % 4.5 % (15.3-44.8); MPV 8.2 fL (7.6-11.3); RBC Red Blood Cell Count 4.58 M/uL (4.33-5.43)
[2021-12-03 04:58] LABS: ALT/SGPT 31 U/L (12-78); AST/SGOT 28 U/L (15-37); Albumin 2.4 g/dL (3.4-5.0); Alkaline Phosphatase 68 U/L (45-117); BUN Blood Urea Nitrogen 25 mg/dL (7-18); Bicarbonate 25 mmol/L (21-32); Bilirubin Total 0.5 mg/dL (0.2-1.0); Ferritin 1202.8 ng/mL (26-388); Glucose Level 122 mg/dL (74-106); Potassium 4.7 mmol/L (3.5-5.1); Protein, Total 6.2 g/dL (6.4-8.2); Sodium Level 138 mmol/L (136-145)
[2021-12-03] MEDS: THIAMINE HCL 100 MG TABLET PO SCH (09:09)
[2021-12-03] MEDS: ZINC SULFATE 220 MG CAP PO SCH (09:10)
[2021-12-03] MEDS: VITAMIN D 1000 UNIT TAB PO SCH (09:10)
[2021-12-03] MEDS: ASPIRIN EC 81 MG TAB PO SCH (09:10)
[2021-12-03] MEDS: FAMOTIDINE 20 MG TAB PO SCH ×2 (09:10→20:50)
[2021-12-03] MEDS: ASCORBIC ACID 500 MG TABLET PO SCH (09:10)
[2021-12-03] MEDS: METHYLPREDNISOLONE 125 MG INJ IV SCH ×2 (09:11→20:50)
[2021-12-03] MEDS: APIXABAN 2.5 MG TABLET PO SCH ×2 (09:11→20:50)
[2021-12-03] MEDS: BARICITINIB 2 MG TABLET PO SCH (09:14)
[2021-12-03] MEDS: BENZONATATE 100 MG CAP PO PRN (09:15)
--- NOTE | 2021-12-03 10:31 | P.PN ---
Subjective Date of Service: 12/03/21 Primary Care Provider: Ranjan Chief Complaint: covid pneumonia Subjective: Improving (Subjectively feeling better stable oxygen requirement weak) Review of Systems General: Weakness Respiratory: Shortness of Breath Physical Examination - Vital Signs Temperature: 97.7 F Blood Pressure: 103/58 Pulse: 74 Respirations: 18 Pulse Ox (%): 91 - Physical Exam General: Alert, Oriented x3 Assessment & Plan - Problems (Diagnosis) (1) Pneumonia due to COVID-19 virus Current Visit: Yes Status: Acute Plan: Respiratory failure patient is on 10 L/min 50% FiO2 vital signs stable
--- NOTE | 2021-12-03 14:11 | P.PN ---
Subjective Date of Service: 12/03/21 Primary Care Provider: Ranjan Chief Complaint: covid pneumonia Patient is currently tolerating 10 L oxygen by nasal cannula. Has been requiring BiPAP intermittently during the night. Patient states that he prefers not to be on the BiPAP. Physical Examination - Vital Signs Temperature: 97.8 F Blood Pressure: 98/68 Pulse: 89 Respirations: 24 Pulse Ox (%): 94 - Physical Exam General: Alert, In no apparent distress, Oriented x3 HEENT: Mucous membr. moist/pink Neck: JVD not distended Respiratory: Other (Nonlabored breathing) Cardiovascular: No edema, Regular rate/rhythm, Normal S1 S2 Gastrointestinal: Soft and benign, Non-distended, No tenderness Musculoskeletal: No swelling, No erythema Integumentary: No rashes, No cyanosis Neurological: Normal speech, Normal strength at 5/5 x4 extr Assessment And Plan - Current Problems (Diagnosis) (1) Acute respiratory failure with hypoxia Current Visit: Yes Status: Acute (2) Pneumonia due to COVID-19 virus Current Visit: Yes Status: Acute - Plan Continue IV steroid. Vitamin C and zinc supplementation. Continue baricitinib. Continue to wean oxygen as tolerated. Eliquis for DVT prophylaxis. Patient declining LTAC placement.
[2021-12-04 04:55] LABS: Absolute Lymphocytes (CBC) 0.4 K/uL (0.7-4.9); Hematocrit 44.7 % (39.6-49.0); Lymphocytes % 3.9 % (15.3-44.8); MPV 7.5 fL (7.6-11.3); RBC Red Blood Cell Count 4.67 M/uL (4.33-5.43)
[2021-12-04 05:12] LABS: ALT/SGPT 33 U/L (12-78); AST/SGOT 31 U/L (15-37); Albumin 2.4 g/dL (3.4-5.0); Alkaline Phosphatase 75 U/L (45-117); BUN Blood Urea Nitrogen 21 mg/dL (7-18); Bicarbonate 25 mmol/L (21-32); Bilirubin Total 0.5 mg/dL (0.2-1.0); Ferritin 1180.4 ng/mL (26-388); Glucose Level 124 mg/dL (74-106); Protein, Total 6.1 g/dL (6.4-8.2); Sodium Level 137 mmol/L (136-145)
[2021-12-04] MEDS: ASPIRIN EC 81 MG TAB PO SCH (07:54)
[2021-12-04] MEDS: APIXABAN 2.5 MG TABLET PO SCH ×2 (07:55→21:47)
[2021-12-04] MEDS: FAMOTIDINE 20 MG TAB PO SCH ×2 (07:55→21:47)
[2021-12-04] MEDS: METHYLPREDNISOLONE 125 MG INJ IV SCH ×2 (07:55→21:47)
[2021-12-04] MEDS: BARICITINIB 2 MG TABLET PO SCH (07:55)
[2021-12-04] MEDS: VITAMIN D 1000 UNIT TAB PO SCH (07:56)
[2021-12-04] MEDS: ZINC SULFATE 220 MG CAP PO SCH (07:56)
[2021-12-04] MEDS: BENZONATATE 100 MG CAP PO PRN (07:56)
[2021-12-04] MEDS: THIAMINE HCL 100 MG TABLET PO SCH (07:56)
--- NOTE | 2021-12-04 13:40 | P.PN ---
Subjective Date of Service: 12/04/21 Primary Care Provider: Ranjan Chief Complaint: covid pneumonia Patient is currently tolerating 5 L oxygen by nasal cannula. He is complaining of constipation. Physical Examination - Vital Signs Temperature: 97.5 F Blood Pressure: 106/58 Pulse: 82 Respirations: 20 Pulse Ox (%): 94 - Physical Exam General: Alert, In no apparent distress Neck: JVD not distended Respiratory: Other (Nonlabored breathing) Cardiovascular: No edema, Regular rate/rhythm, Normal S1 S2 Gastrointestinal: Soft and benign, Non-distended Musculoskeletal: No swelling Integumentary: No rashes, No cyanosis Neurological: Normal strength at 5/5 x4 extr Assessment And Plan - Current Problems (Diagnosis) (1) Acute respiratory failure with hypoxia Current Visit: Yes Status: Acute (2) Pneumonia due to COVID-19 virus Current Visit: Yes Status: Acute (3) Functional constipation Current Visit: Yes Status: Acute - Plan Continue IV steroid. Continue Vitamin C and zinc supplementation. On baricitinib. Continue to wean oxygen as tolerated. Arrange for home oxygen. Eliquis for DVT prophylaxis. Senna and MiraLAX for constipation.
[2021-12-04] MEDS: POLYETHYL GLY 3350 17 GM/DOSE PO SCH (13:41)
[2021-12-04] MEDS: SENOSIDES 8.6 MG TAB PO SCH (21:46)
[2021-12-04] MEDS: MELATONIN 5 MG TABLET PO PRN (21:49)
[2021-12-05] MEDS: BENZONATATE 100 MG CAP PO PRN (01:01)
[2021-12-05] MEDS: BARICITINIB 2 MG TABLET PO SCH (08:03)
[2021-12-05] MEDS: VITAMIN D 1000 UNIT TAB PO SCH (08:03)
[2021-12-05] MEDS: THIAMINE HCL 100 MG TABLET PO SCH (08:03)
[2021-12-05] MEDS: ZINC SULFATE 220 MG CAP PO SCH (08:03)
[2021-12-05] MEDS: METHYLPREDNISOLONE 125 MG INJ IV SCH (08:04)
[2021-12-05] MEDS: SENOSIDES 8.6 MG TAB PO SCH ×2 (08:04→20:19)
[2021-12-05] MEDS: ASPIRIN EC 81 MG TAB PO SCH (08:04)
[2021-12-05] MEDS: POLYETHYL GLY 3350 17 GM/DOSE PO SCH (08:04)
[2021-12-05] MEDS: APIXABAN 2.5 MG TABLET PO SCH ×2 (08:04→20:19)
[2021-12-05] MEDS: FAMOTIDINE 20 MG TAB PO SCH ×2 (08:04→20:19)
--- NOTE | 2021-12-05 12:59 | P.PN ---
Subjective Date of Service: 12/05/21 Primary Care Provider: Ranjan Chief Complaint: covid pneumonia Subjective: Improving (Patient is improving is down to 6 L nasal cannula oxygen no other complaint) Review of Systems General: Weakness Respiratory: Shortness of Breath Physical Examination - Vital Signs Temperature: 98.1 F Blood Pressure: 100/64 Pulse: 89 Respirations: 20 Pulse Ox (%): 89 - Physical Exam General: Alert, Oriented x3, Mild distress Respiratory: Clear to auscultation bilaterally, Diminished - Studies Microbiology Data (last 24 hrs): 11/29/21 18:45 Blood - Blood Aerobic Blood Culture - Final No growth in 5 days. 11/29/21 18:45 Blood - Blood Anaerobic Blood Culture - Final No growth in 5 days. 11/29/21 18:55 Blood - Blood Aerobic Blood Culture - Final No growth in 5 days. 11/29/21 18:55 Blood - Blood Anaerobic Blood Culture - Final No growth in 5 days. Assessment & Plan - Problems (Diagnosis) (1) Pneumonia due to COVID-19 virus Current Visit: Yes Status: Acute Plan: Respiratory failure patient is improving oxygen requirements down to 6 L order home oxygen changed to p.o. dexamethasone possible discharge tomorrow home oxygen has been ordered
--- NOTE | 2021-12-05 15:46 | P.PN ---
Subjective Date of Service: 12/05/21 Primary Care Provider: Ranjan Chief Complaint: covid pneumonia Patient is currently tolerating 5-6 L oxygen by nasal cannula. He has no new complaints. Physical Examination - Vital Signs Temperature: 98.1 F Blood Pressure: 100/64 Pulse: 89 Respirations: 20 Pulse Ox (%): 89 - Physical Exam General: Alert, In no apparent distress Neck: JVD not distended Respiratory: Other (Nonlabored breathing) Cardiovascular: No edema, Regular rate/rhythm Gastrointestinal: Soft and benign, Non-distended Musculoskeletal: No swelling Integumentary: No rashes Neurological: Normal strength at 5/5 x4 extr - Studies Microbiology Data (last 24 hrs): 11/29/21 18:45 Blood - Blood Aerobic Blood Culture - Final No growth in 5 days. 11/29/21 18:45 Blood - Blood Anaerobic Blood Culture - Final No growth in 5 days. 11/29/21 18:55 Blood - Blood Aerobic Blood Culture - Final No growth in 5 days. 11/29/21 18:55 Blood - Blood Anaerobic Blood Culture - Final No growth in 5 days. Assessment And Plan - Current Problems (Diagnosis) (1) Acute respiratory failure with hypoxia Current Visit: Yes Status: Acute (2) Pneumonia due to COVID-19 virus Current Visit: Yes Status: Acute (3) Functional constipation Current Visit: Yes Status: Acute - Plan Dr. Hassan's input appreciated. IV steroids changed to p.o. dexamethasone. Continue Vitamin C and zinc supplementation. On baricitinib. Continue to wean oxygen as tolerated. Arrange for home oxygen. Discharge to home once patient able to tolerate 3 to 4 L of oxygen by nasal cannula. Eliquis for DVT prophylaxis. Patient had a bowel movement today. Continue senna and MiraLAX for constipation.
[2021-12-05] MEDS: dexAMETHasone 4 MG TAB PO SCH (20:19)
[2021-12-06 03:47] LABS: Absolute Lymphocytes (CBC) 0.7 K/uL (0.7-4.9); Hematocrit 44.9 % (39.6-49.0); MPV 7.4 fL (7.6-11.3); RBC Red Blood Cell Count 4.69 M/uL (4.33-5.43)
[2021-12-06 04:07] LABS: BUN Blood Urea Nitrogen 24 mg/dL (7-18); Bicarbonate 24 mmol/L (21-32); Glucose Level 110 mg/dL (74-106); Potassium 4.9 mmol/L (3.5-5.1); Sodium Level 136 mmol/L (136-145)
[2021-12-06 04:47] LABS: Blood Morphology Comment NOTED (NOT SEEN); Burr Cells 1+; Platelet Estimate ADEQ
--- NOTE | 2021-12-06 06:26 | P.PN ---
Date of Service: 12/06/21 Subjective: Feeling better, breathing more comfortably Reports of generalized weakness, has not gotten out of bed much, walked into bedside commode ROS: 10 point ROS as noted above, otherwise negative Physical exam GEN: Alert, oriented, NAD HEENT: Normal conjunctiva, sclera anicteric CV: Regular rate and rhythm, no edema Pulm: Nonlabored respiration on 5L NC ABD: Soft, nontender, nondistended Integumentary: No rashes Neuro: Normal speech, normal affect Problem List Acute hypoxemic respiratory failure secondary to COVID-19 pneumonia Functional constipation New diagnosis, systolic CHF Continue p.o. steroids, vitamin supplementation, baricitinib Wean oxygen as tolerated, home oxygen being arranged/ordered Patient with some generalized weakness, has not ambulated much, physical therapy consulted Echocardiogram earlier in hospitalization reveals EF of 19% Cardiology consulted Unable to initiate CHF medication secondary to borderline low blood pressure Continue to monitor closely Will need to follow-up with cardiology as an outpatient, to recheck blood pressure start appropriate medications for CHF. No cardiac history, decreased function likely secondary to COVID Pulmonology consulted VTE: Eliquis Code: Full Dispo: Anticipate DC home in the next 1-2 days, once oxygen stable at 4 L NC or less Time Spent Managing Pts Care (In Minutes): 35
[2021-12-06] MEDS: POLYETHYL GLY 3350 17 GM/DOSE PO SCH (09:00)
[2021-12-06] MEDS: dexAMETHasone 4 MG TAB PO SCH ×2 (09:00→20:42)
[2021-12-06] MEDS: APIXABAN 2.5 MG TABLET PO SCH ×2 (09:09→20:42)
[2021-12-06] MEDS: FAMOTIDINE 20 MG TAB PO SCH ×2 (09:09→20:42)
[2021-12-06] MEDS: BARICITINIB 2 MG TABLET PO SCH (09:09)
[2021-12-06] MEDS: ASPIRIN EC 81 MG TAB PO SCH (09:09)
[2021-12-06] MEDS: VITAMIN D 1000 UNIT TAB PO SCH (09:10)
[2021-12-06] MEDS: ZINC SULFATE 220 MG CAP PO SCH (09:10)
[2021-12-06] MEDS: THIAMINE HCL 100 MG TABLET PO SCH (09:10)
[2021-12-06] MEDS: SENOSIDES 8.6 MG TAB PO SCH ×2 (09:10→20:42)
[2021-12-07 04:02] LABS: BUN Blood Urea Nitrogen 20 mg/dL (7-18); Bicarbonate 24 mmol/L (21-32); Ferritin 1168.2 ng/mL (26-388); Glucose Level 106 mg/dL (74-106); Potassium 4.7 mmol/L (3.5-5.1); Sodium Level 135 mmol/L (136-145)
--- NOTE | 2021-12-07 06:36 | P.PN ---
Date of Service: 12/07/21 Subjective: ROS: 10 point ROS as noted above, otherwise negative Physical exam GEN: Alert, oriented, NAD HEENT: Normal conjunctiva, sclera anicteric CV: Regular rate and rhythm, no edema Pulm: Nonlabored respiration on 5L NC ABD: Soft, nontender, nondistended Integumentary: No rashes Neuro: Normal speech, normal affect Problem List Acute hypoxemic respiratory failure secondary to COVID-19 pneumonia Functional constipation New diagnosis, systolic CHF Continue p.o. steroids, vitamin supplementation, baricitinib Wean oxygen as tolerated, home oxygen being arranged/ordered Patient with some generalized weakness, has not ambulated much, physical therapy consulted Echocardiogram earlier in hospitalization reveals EF of 19% Cardiology consulted Unable to initiate CHF medication secondary to borderline low blood pressure Continue to monitor closely Will need to follow-up with cardiology as an outpatient, to recheck blood pressure start appropriate medications for CHF. No cardiac history, decreased function likely secondary to COVID Pulmonology consulted VTE: Eliquis Code: Full Dispo: Anticipate DC home in the next 1-2 days, once oxygen stable at 4 L NC or less Time Spent Managing Pts Care (In Minutes): 35
[2021-12-07] MEDS: BARICITINIB 2 MG TABLET PO SCH (08:46)
[2021-12-07] MEDS: VITAMIN D 1000 UNIT TAB PO SCH (08:47)
[2021-12-07] MEDS: POLYETHYL GLY 3350 17 GM/DOSE PO SCH (08:47)
[2021-12-07] MEDS: ZINC SULFATE 220 MG CAP PO SCH (08:48)
[2021-12-07] MEDS: FAMOTIDINE 20 MG TAB PO SCH (08:48)
[2021-12-07] MEDS: THIAMINE HCL 100 MG TABLET PO SCH (08:48)
[2021-12-07] MEDS: ASPIRIN EC 81 MG TAB PO SCH (08:48)
[2021-12-07] MEDS: APIXABAN 2.5 MG TABLET PO SCH (08:49)
[2021-12-07] MEDS: dexAMETHasone 4 MG TAB PO SCH (08:49)
[2021-12-07] MEDS: SENOSIDES 8.6 MG TAB PO SCH (08:50)
[2021-12-07 09:55] VITALS: O2SAT 94
[2021-12-07 12:25] VITALS: BP 82/53; TEMP 97.8
--- NOTE | 2021-12-07 20:03 | P.DS ---
Admission Date: 11/29/21 Discharge Date: 12/07/21 Primary Care Provider: Ranjan Disposition: ROUTINE DISCHARGE Discharge Condition: GOOD Reason for Admission: covid pneumonia Consultations: Pulmonology - Dr. Hassan Cardiology - Dr. Morales Procedures: CXR (11/29): IMPRESSION: Bilateral interstitial and alveolar opacities are present suspicious for COVID-19 pneumonia. This needs correlation with history and testing. Non COVID-19 viral pneumonia etiologies are possible as well. Prominent heart and vasculature mostly due shallow inspiration. A mild failure or volume overload could be masked. CTA Chest (11/29): FINDINGS: Vascular: The pulmonary arteries are well-opacified to the segmental level. No CT evidence of acute pulmonary thromboembolism. No evidence of aortic aneurysm. Lungs and pleura: Moderate regions of groundglass opacification in both lungs. Trace bilateral pleural effusions. No pneumothorax. Mediastinum and neck: Mild mediastinal lymphadenopathy. Unremarkable appearance of the thyroid gland. Cardiac: Left ventricular enlargement. No pericardial effusion. Abdomen: Hepatic hypodensities, likely cysts, measuring up to 6 cm in size. Musculoskeletal: No concerning osseous abnormality. IMPRESSION: 1. No CTA evidence of acute pulmonary thromboembolism. 2. Moderate regions of groundglass opacification in both lungs. Trace bilateral pleural effusions. Correlate for infectious/inflammatory process versus pulmonary edema. 3. Mild mediastinal lymphadenopathy, likely reactive. 4. Left ventricular enlargement. Echo (11/30): severe global hypokinesis LVEF: 19% mild TR normal RV systolic pressure LA enlargement. LVH Problem List Acute hypoxemic respiratory failure secondary to COVID-19 pneumonia Functional constipation, resolved New diagnosis, systolic CHF suspect secondary to COVID-19 Brief History of Present Illness: 71 yo M who was brought in by EMS for hypoxia down to the 70s. His symptoms started last Sunday with dry cough, pleuritic pain, SOB, BATES, vomiting and constipation. He has had poor appetite and poor fluid intake. His shortness of breath as continued to worsen over the past three days. He says the minute he was placed on oxygen, he felt immediate relief. He tested positive for COVID last Sunday. Lactate 3.2 Ferritin 1866 CRP 123 BNP 3754 procal 0.52 Hospital Course: Improved with steroids, oxygen supplementation, and Baracitinab. Pulmonlogy was consulted. Oxygen weaned down to 3L NC. Patient reported feeling better, ambulating, improved diet, urinating and having bowel movements. Discharged home to continue steroids and aspirin. Echocardiogram revealed EF: 19%. Cardiology was consulted, suspect this is secondary to covid. Patient's blood pressure was low-normal throughout the hospitalization. Too low to start appropriate CHF medications. Patient was discharged home to continue steroids and aspirin. Follow up with Dr. Hassan in ~1week Follow up with Dr. Morales in ~1 month. Will need repeat echo in near future to eval EF Vital Signs/Physical Exam: Physical exam GEN: Alert, oriented, NAD HEENT: Normal conjunctiva, sclera anicteric CV: Regular rate and rhythm, no edema Pulm: Nonlabored respiration on 4L NC ABD: Soft, nontender, nondistended Integumentary: No rashes Neuro: Normal speech, normal affect Temp Pulse Resp BP Pulse Ox 97.8 F 88 20 82/53 L 93 12/07/21 12:00 12/07/21 12:00 12/07/21 12:00 12/07/21 12:00 12/07/21 12:00 Laboratory Data at Discharge: WBC 11.60 K/uL (4.3-10.9) H D 12/06/21 03:34 Hgb 15.0 g/dL (13.6-17.9) 12/06/21 03:34 Hct 44.9 % (39.6-49.0) 12/06/21 03:34 Plt Count 300 K/uL (152-406) 12/06/21 03:34 PT 13.7 SECONDS (9.5-12.5) H 11/29/21 18:54 INR 1.19 11/29/21 18:54 Sodium 135 mmol/L (136-145) L 12/07/21 03:30 Potassium 4.7 mmol/L (3.5-5.1) 12/07/21 03:30 BUN 20 mg/dL (7-18) H 12/07/21 03:30 Creatinine 0.56 mg/dL (0.55-1.3) 12/07/21 03:30 Glucose 106 mg/dL (74-106) 12/07/21 03:30 Phosphorus 3.4 mg/dL (2.5-4.9) 11/30/21 03:16 Magnesium 2.3 mg/dL (1.8-2.4) 11/30/21 03:16 Total Bilirubin 0.5 mg/dL (0.2-1.0) 12/04/21 04:40 AST 31 U/L (15-37) 12/04/21 04:40 ALT 33 U/L (12-78) 12/04/21 04:40 Alkaline Phosphatase 75 U/L (45-117) 12/04/21 04:40 Triglycerides 81 mg/dL (<150) 11/30/21 03:16 Cholesterol 132 mg/dL (<200) 11/30/21 03:16 HDL Cholesterol 45 mg/dL (40-60) 11/30/21 03:16 Cholesterol/HDL Ratio 2.93 11/30/21 03:16 Home Medications: Aspirin [Aspirin EC 81 MG] 81 mg PO DAILY 30 Days #30 tablet. 12/07/21 dexAMETHasone [Decadron*] 4 mg PO SEECOM 10 Days #15 tab 12/07/21 New Medications: Aspirin [Aspirin EC 81 MG] 81 mg PO DAILY 30 Days #30 tablet. dexAMETHasone [Decadron*] 4 mg PO SEECOM 10 Days #15 tab Physician Discharge Instructions: You were diagnosed with COVID-19 pneumonia. You improved with steroids, Baracitinab, and oxygen supplementations. Discharged home to continue steroids. Recommend daily aspirin. You were also noted to have a low ejection fraction of your heart - not pumping as strong as it should. Cardiology was consulted and felt this was likely due to COVID-19. You will need to follow up with Cardiology (Dr. Morales), in ~1 month. He will order repeat echocardiogram to check on your heart function again. This is likely why you have been having low-normal blood pressure as well. Recommend taking things easy, move around slowly. Followup: Galindo Morales MD [ACTIVE - CAN ADMIT] - (Call to schedule an appointment) John Sams MD [Primary Care Provider] - 1-2 Weeks (CAll to schedule an appointment) Time spent managing pt's care (in minutes): 45
--- NOTE | 2021-12-09 16:35 | CON ---
Reason For Consultation: The patient admitted on 11/29/2021 with COVID pneumonia. I was consulted f or congestive heart failure. History Of Present Illness: Mr. Marte is 71, who was here, being treated for COVID. An echocar diogram was done because of hypotension and was found to have an ejection fraction of 19%. The patie nt denied chest pain. No nausea or vomiting or diaphoresis. Has had no palpitations or syncope, fev er or chills, but he had complained of some PND, orthopnea and pedal edema. Past Medical History: Negative. Allergies: NEGATIVE. Medications: At home were none. Physical Examination: Vital Signs: Stable, afebrile, sinus rhythm. HEENT: Negative. Neck: Supple with no bruit. Revealed JVD. Chest: Revealed rales at both bases. Cardiac: Revealed a regular rhythm and rate with an S3 gallops. Abdomen: Benign. Extremities: Revealed no clubbing, cyanosis, or edema. Diagnostic Data: Within normal limit except for COVID and for the echocardiogram. Impression And Plan: New onset cardiomyopathy, acute systolic congestive heart failure, may be relat ed to [facility]. The patient's blood pressure is 86/54. He is not a candidate for any therapy at this p oint. He needs to be gently hydrated. Continue aspirin and Pepcid. Continue Eliquis. He needs to come see me in the office as soon as he leaves. We need to see what we can do with his blood pressur e. He may need to be transferred to [place] to the congestive heart failure team for some maybe [facility] anical intervention as he will not tolerate any medications at this point. Case was discussed with Dr. Josue. EVANGELINA/LYSSA Voice ID: [id number] Report ID: [id number]
== END 2021-12-07 14:42 | disposition home or self-care (01) | DRG 177 ==
LOC: ER 18:42 → ERHOLD 21:46 → 4TH 11-30 14:23
PROVIDERS: ADMIT Internal Medicine; ATTEND Hospitalist
PROC: 5A09557 Assistance with Respiratory Ventilation, Greater than 96 Consecutive Hours, Continuous Positive Airway Pressure (ICD-10-PCS; 2021-11-29)
PROC: XW0DXM6 Introduction of Baricitinib into Mouth and Pharynx, External Approach, New Technology Group 6 (ICD-10-PCS; principal; 2021-12-07)
DX: U07.1 COVID-19 (principal); J12.82 Pneumonia due to coronavirus disease 2019; J96.01 Acute respiratory failure with hypoxia; I50.21 Acute systolic (congestive) heart failure; I42.9 Cardiomyopathy, unspecified; K59.04 Chronic idiopathic constipation; Z79.01 Long term (current) use of anticoagulants; Z79.82 Long term (current) use of aspirin
CPT/HCPCS: 0240U; 36415; 71045; 71275; 80048; 80053; 80061; 80076; 81003; 81015; 82728; 82805; 83605; 83735; 83880; 84100; 84145; 84439; 84443; 84484; 85025; 85610; 86140; 87040; 93005; 93306; 94660; 94760; 96361; 96374; 99284; J1100; J2920; J2930; J7030; J8540; Q9967